=== PATIENT | female | born 1945 | race Caucasian/White ===

== ENCOUNTER 2016-07-31 18:50 | Emergency (ER) | payer OTHER, BC ==
[2016-07-31 18:57] VITALS: TEMP 98.1; O2SAT 92
--- NOTE | 2016-07-31 19:28 | EDPHY ---
H & P Stated Complaint: cough/fatigue/xray completed today/sent to r/o pe Time Seen by Provider: 07/31/16 19:01 - Personal History Current Tetanus/Diphtheria Vaccine: Yes Tetanus Vaccine Date: WITHIN 10 Y - Medical/Surgical History Hx Asthma: No Hx Chronic Respiratory Disease: No Hx Diabetes: No Hx Cardiac Disease: No Hx Renal Disease: No Hx Cirrhosis: No Hx Alcoholism: No Hx HIV/AIDS: No Hx Splenectomy or Spleen Trauma: No Other PMH: htn - Social History Smoking Status: Never smoked Constitutional: Initial Vital Signs Temperature (C) 36.7 C 07/31/16 18:54 Heart Rate 94 07/31/16 18:54 Respiratory Rate 20 07/31/16 18:54 Blood Pressure 185/87 H 07/31/16 18:54 O2 Sat (%) 92 07/31/16 18:54 O2 Delivery Mode Room Air Allergies/Adverse Reactions: No Known Allergies Allergy (Verified 07/31/16 18:52) Home Medications: Medication Instructions Recorded Atorvastatin Calcium [Lipitor 20 20 mg PO DAILY 04/08/12 mg (RX)] Calcium Carb W/Vit D [Calcium Carb 500 mg PO BID@12,18 04/08/12 W/Vit D 500/200 (OTC)] Cholecalciferol Vit D3 [Vitamin D3 1,000 units PO DAILY 04/08/12 1000 units (OTC)] Lisinopril [Zestril 40 mg (RX)] 40 mg PO DAILY 04/08/12 Multivitamins [Multivitamin (OTC)] 1 each PO DAILY 04/08/12 [place]-3 Fatty Acids [Fish Oil 1000 1,000 mg PO DAILY 04/08/12 mg (OTC)] Psyllium Seed (with Dextrose) 1 tsp PO BID 04/08/12 [Konsyl-D Packet] Vitamin B Complex [Vitamin B 1 each PO DAILY 04/08/12 Complex (OTC)] guaiFENesin [Mucinex 600 MG (OTC)] 600 mg PO DAILY 04/08/12 Medical Decision Making ED Course/Re-evaluation: CHIEF COMPLAINT: Shortness of breath, cough. HISTORY OF PRESENT ILLNESS: The patient is a 70-year-old female who presents with shortness of breath for the past week. She admits associated cough that has been worsening since onset. Symptoms are not worsened with exertion. She does admit driving from [place] recently. She denies calf pain, calf swelling, fever, recent sickness, diarrhea, vomiting, chills. She was seen at Dr. James's office earlier today and had a negative chest x-ray. REVIEW OF SYSTEMS: A 10 point review of systems was performed and is negative with the exception of the elements mentioned in the history of present illness. PHYSICAL EXAM: HR, BP, O2 Sat, RR. Temp noted General Appearance: Alert, well hydrated, appropriate, and non-toxic appearing. Head: Atraumatic without scalp tenderness or obvious injury Eyes: Pupils equal, round, reactive to light and accommodation, EOMI, no trauma , no injection. Ears: Clear bilaterally, no perforation, normal landmarks Nose: Atraumatic, no rhinorrhea, clear. Throat: There is no erythema or exudates, no lesions, normal tonsils, mucus membranes moist. Neck: Supple, 2+ carotid upstroke, nontender, no lymphadenopathy. Respiratory: No retractions, no distress, no wheezes, and no accessory muscle use. Lungs are clear to auscultation bilaterally. Cardiovascular: Regular rate and rhythm, no murmurs, rubs, or gallops. Bilateral carotid, radial, dorsalis pedis, and posterior tibial pulses intact. Good capillary refill all extremities. Gastrointestinal: Abdomen is soft, nontender, non-distended, no masses, no rebound, no guarding, no peritoneal signs. Musculoskeletal: Normal active ROM of all extremities, atraumatic. Neurological: Alert, appropriate, and interactive. The patient has normal DTRs and non-focal cranial nerves, motor, sensory, and cerebellar exam. Skin: No rashes, good turgor, no nodules on palpation. Superficial varicosities over both legs. Past medical history: Hypertension, hypercholesterolemia. Past surgical history: Denies. Family history: N/A. Social history: Former smoker. DIAGNOSTICS/PROCEDURES/CRITICAL CARE TIME: Study: CT of the chest. Indication: Shortness of breath. Results: See Image Results section for official report. The study was read by the radiologist. I viewed the images myself on the PACS system. DIFFERENTIAL DIAGNOSIS: The differential diagnosis for the patient's shortness of breath and hypoxemia included but was not limited to pneumonia, myocardial infarction, acute mountain sickness, high altitude pulmonary edema, congestive heart failure, and pulmonary embolus. MEDICAL DECISION MAKING: I was notified of this patient prior to her visit by her PCP Dr. James, who believes she needs a PE ruleout workup. She recently had a long drive from [place] to visit family. She now has had one week of shortness of breath and cough. She has normal oxygen saturation and a normal respiratory rate. Chest CT ordered to rule out PE. ISTAT ordered. 2041: CT results conveyed to me by Dr. Lance, radiology. He reports a small right middle lobe infiltrate but no PE. I have placed her on Azithromycin. I discussed these results and the plan with her at this time and answered her questions. She is comfortable with the plan. - Data Points Laboratory Results: 07/31/16 19:15 POC Hgb 16.7 gm/dL H gm/dL (12.3-15.9) POC Hct 49 % H % (35.5-47.5) POC Sodium 129 mEq/L L mEq/L (134-144) POC Potassium 3.1 mEq/L L mEq/L (3.3-5.0) POC Chloride 87 mEq/L L mEq/L (96-108) POC BUN 10 mg/dL mg/dL (7-23) POC Creatinine 0.5 mg/dL L mg/dL (0.6-1.2) POC Glucose 166 mg/dL H mg/dL (70-100) Point of Care Test Results: 07/31/16 19:15 POC Sodium 129 L POC Potassium 3.1 L POC Chloride 87 L POC BUN 10 POC Creatinine 0.5 L POC Glucose 166 H Departure - Departure Disposition: Home, Routine, Self-Care Clinical Impression: Right middle lobe pneumonia Qualifiers: Pneumonia type: due to unspecified organism Qualified Code(s): J18.1 - Lobar pneumonia, unspecified organism Condition: Good Instructions: Pneumonia (ED) Additional Instructions: Add salt to your diet. Follow up with your primary care provider for re-check of your electrolytes. Return for any serious worsening of condition. Referrals: Navarro James MD [Primary Care Provider] - As per Instructions Report Scribed for: Taurus Coffey Report Scribed by: Kwaku [place] Date of Report: 07/31/16 Time of Report: 20:43
[2016-07-31] MEDS ORDERED: IOPAMIDOL (ISOVUE 370) 100 ML BTL IV ONE (19:45)
[2016-07-31 20:29] VITALS: BP 168/82; PULSE 98; RESP 19
[2016-07-31] MEDS ORDERED: AZITHROMYCIN 250 MG TAB PO ONE (20:43)
== END 2016-07-31 21:10 | disposition home or self-care (01) ==
DX: J18.9 Pneumonia, unspecified organism (principal); I10 Essential (primary) hypertension; Z87.891 Personal history of nicotine dependence
CPT/HCPCS: 71275; 99285; Q9967; 71020-PO; 82947-QW

== ENCOUNTER → 2016-07-31 | Outpatient (CLI) | payer OTHER, BC | LOC: GIMAGING 18:06 | PROVIDERS: ATTEND Family Medicine | DX: J40 Bronchitis, not specified as acute or chronic (principal) | CPT/HCPCS: 71020-PO ==